=== PATIENT | male | born 1950 | race Caucasian/White ===

== ENCOUNTER 2023-07-09 16:54 | Inpatient (IN) | payer OTHER ==
[~2023-07-09] VITALS: Ht 165.1 cm; Wt 89.1 kg
[2023-07-09] MEDS ORDERED: B-121000 MC3 PO (17:48)
[2023-07-09] MEDS ORDERED: Aspir 8181 MG PO (17:48)
[2023-07-09] MEDS ORDERED: Lisinopril2.5 MG PO (17:48)
[2023-07-09] MEDS ORDERED: SERT25 PO (17:48)
[2023-07-09] MEDS ORDERED: VITAMIN D31000 UNI1 PO (17:49)
[2023-07-09] MEDS ORDERED: Colace100 MG PO (17:49)
[2023-07-09] MEDS ORDERED: Azithromycin 250 MG Tab PO ONE ×2 (18:30→19:55)
[2023-07-09] MEDS ORDERED: CefTRIAXone Sodium 1,000 MG in NS 50 ML IV ONE (18:30)
[2023-07-09 19:29] LABS: BASOPHILS ABSOLUTE AUTO 0.04 K/mm3 (0.00-0.23); BASOPHILS PERCENT AUTO 0 % (0-2); EOSINOPHILS ABSOLUTE AUTO 0.07 K/mm3 (0.00-0.68); EOSINOPHILS PERCENT AUTO 1 % (0-6); Hematocrit 39.8 % (37.0-53.0); Hemoglobin 12.6 g/dL (13.5-17.5); IMMATURE GRAN ABSOLUTE AUTO 0.26 K/mm3 (0.00-0.10); IMMATURE GRAN PERCENT AUTO 3 % (0-1); LYMPHOCYTES PERCENT AUTO 17 % (21-46); MONOCYTES ABSOLUTE AUTO 1.72 K/mm3 (0.16-1.47); MONOCYTES PERCENT AUTO 19 % (4-13); Mean Corpuscular HGB 28.6 pg (26.0-34.0); Mean Corpuscular HGB Conc 31.7 g/dL (31.5-36.5); Mean Corpuscular Volume 91 fL (80-100); Mean Platelet Volume 9.8 fL (9.1-12.4); NEUTROPHILS ABSOLUTE AUTO 5.59 K/mm3 (1.96-9.15); NEUTROPHILS PERCENT AUTO 60 % (41-73); Platelet Count 210 K/mm3 (150-400); RDW Coefficient Variation 15.5 % (11.7-14.2); RDW Standard Deviation 49.9 fL (35.1-46.3); White Blood Cell Count 9.28 K/mm3 (4.00-11.30)
[2023-07-09] MEDS ORDERED: Acetaminophen 325 MG TABLET PO PRN (20:25)
[2023-07-09] MEDS ORDERED: Ondansetron HCl 2 MG / ML 2ML Vial IV PRN (20:25)
[2023-07-09] MEDS ORDERED: FLU VACC QS2023-24(6MOS UP)/PF 60 MCG/0.5 ML SYRINGE IM SCH (20:25)
[2023-07-09] MEDS ORDERED: Albuterol 2.5 MG/3 ML VIAL INH PRN (20:30)
[2023-07-09] MEDS ORDERED: Ipratropium/Albuterol SulF 2.5-0.5MG/3 ML Amp INH SCH (20:30)
[2023-07-09] MEDS ORDERED: Ampicillin Sod/Sulbactam Sod 3 GM in NS 100 ML IV ONE (20:35)
[2023-07-09 20:39] LABS: International Normalized Ratio 1.12; Prothrombin Time Results 11.7 Sec (9.7-11.5)
[2023-07-09 20:43] LABS: Albumin, Blood 2.4 g/dL (3.4-5.0); Albumin/Globulin Ratio 0.6 (0.8-1.8); Bilirubin, Total 0.7 mg/dL (0.1-1.0); Bun/Creatinine Ratio 12.1 (12.0-20.0); Creatinine, Blood 0.83 mg/dL (0.60-1.20); Globulin, Blood 4.3 g/dL (2.2-4.0); Potassium, Blood 3.5 mmol/L (3.5-5.5); Total Protein, Blood 6.7 g/dL (6.4-8.2)
[2023-07-09 21:04] LABS: Influenza A, PCR NEGATIVE (NEGATIVE); Influenza B, PCR NEGATIVE (NEGATIVE); Resp Syncytial Virus, PCR NEGATIVE (NEGATIVE); SARS-Cov-2 (COVID-19) PCR, MMC NEGATIVE (NEGATIVE)
--- NOTE | 2023-07-09 23:35 | NUR ---
NEW ADMIT. PATIENT ADMITTED TO ROOM 344 FROM THE ER. PATIENT ARRIVED TO FLOOR VIA GURNEY AND ONE PERSON ASSIST. PATIENT ABLE TO SELF TRANSFER FROM THE GURNEY TO HOSPITAL BED. PATIENT UP WITH 2 PERSONAL BELONGINGS BAGS.
[2023-07-09 23:48] VITALS: BP 108/54
[2023-07-10] MEDS ORDERED: NS 250 ML IV PRN (01:50)
[2023-07-10] MEDS ORDERED: Ampicillin Sod/Sulbactam Sod 3 GM in NS 100 ML IV SCH (02:00)
[2023-07-10] MEDS ORDERED: NS 100 ML IV ONE ×2 (02:23→22:38)
[2023-07-10 03:03] VITALS: BP 112/72
[2023-07-10] MEDS ORDERED: HYDROmorphone HCl/Pf 1MG SYR IV PRN (04:15)
--- NOTE | 2023-07-10 04:39 | NUR ---
SHIFT SUMMARY. PATIENT IS ALERT AND ORIENTED. PATIENT IS ON 7.5 L'S VIA FACE MASK SATTING >93%. PATIENT ATTEMPTED TO USE HIS CPAP; PATIENT UNABLE TO TOLERATE-RT NOTIFIED. PATIENT IS PLESANT AND COOPERATIVE WITH CARE. PATIENT IS A 1P SBA TO THE BATHROOM. PATIENT CALLS APPROPRIATELY AND IS ABLE TO MAKE HIS NEEDS KNOWN.BED IS LOCKED IN THE LOWEST POSITION WITH CALL LIGHT IN REACH. NO NOTED S/S OF DISTRESS AT THIS TIME. CARE ONGOING.
[2023-07-10 04:44] LABS: Mean Corpuscular HGB 28.5 pg (26.0-34.0); Mean Corpuscular HGB Conc 31.4 g/dL (31.5-36.5); Mean Corpuscular Volume 91 fL (80-100); Mean Platelet Volume 10.3 fL (9.1-12.4); Platelet Count 173 K/mm3 (150-400); RDW Coefficient Variation 15.4 % (11.7-14.2); RDW Standard Deviation 50.5 fL (35.1-46.3); Red Blood Cell Count 3.86 M/mm3 (4.30-5.90); White Blood Cell Count 7.38 K/mm3 (4.00-11.30)
[2023-07-10 05:07] LABS: Bun/Creatinine Ratio 10.5 (12.0-20.0); Calcium, Blood 8.4 mg/dL (8.5-10.1); Creatinine, Blood 0.76 mg/dL (0.60-1.20); Potassium, Blood 3.5 mmol/L (3.5-5.5)
[2023-07-10] MEDS ORDERED: Insulin Human Lispro 100 Units/ML 3ML Syringe SC SCH (07:30)
[2023-07-10 07:53] VITALS: BP 113/67
[2023-07-10] MEDS ORDERED: Lisinopril 5 MG Tab PO SCH (09:00)
[2023-07-10] MEDS ORDERED: Azithromycin 500 MG in NS 250 ML IV SCH (09:00)
[2023-07-10] MEDS ORDERED: Enoxaparin 40 MG/0.4 ML SYR SC SCH (09:00)
[2023-07-10] MEDS ORDERED: Aspirin 81 MG TabEC PO SCH (09:00)
--- NOTE | 2023-07-10 10:44 | NUR ---
OXYGEN HIGH FLOW OXYGEN PLACED ON HUMIDIFIED CANNISTER. CARE ONGOING.
[2023-07-10 15:06] VITALS: BP 106/58
--- NOTE | 2023-07-10 16:51 | NUR ---
NOTE PT RESTING QUIETLY. 5L HUMNIDIFIED HIGH FLOW OXYGEN. PT SPO2 95% AT REST. WALKING 90%. HR STABLE. DENIED PAIN. MILD SOB WITH ACTIVITY. OCCASIONAL COUGH. EATING WELL. USING CALL LIGHT APPROPRIATELY. VSS. BED LOW AND LOCKED. CALL LIGHT WITH IN REACH. CARE ONGOING.
[2023-07-10 19:39] VITALS: BP 105/62
[2023-07-11 03:43] VITALS: BP 109/64
[2023-07-11 04:16] LABS: BASOPHILS ABSOLUTE AUTO 0.02 K/mm3 (0.00-0.23); BASOPHILS PERCENT AUTO 0 % (0-2); EOSINOPHILS ABSOLUTE AUTO 0.07 K/mm3 (0.00-0.68); EOSINOPHILS PERCENT AUTO 1 % (0-6); Hematocrit 35.5 % (37.0-53.0); Hemoglobin 10.9 g/dL (13.5-17.5); IMMATURE GRAN ABSOLUTE AUTO 0.34 K/mm3 (0.00-0.10); IMMATURE GRAN PERCENT AUTO 5 % (0-1); LYMPHOCYTES ABSOLUTE AUTO 1.23 K/mm3 (0.84-5.20); LYMPHOCYTES PERCENT AUTO 19 % (21-46); MONOCYTES ABSOLUTE AUTO 1.47 K/mm3 (0.16-1.47); MONOCYTES PERCENT AUTO 22 % (4-13); Mean Corpuscular HGB 28.2 pg (26.0-34.0); Mean Corpuscular HGB Conc 30.7 g/dL (31.5-36.5); Mean Corpuscular Volume 92 fL (80-100); Mean Platelet Volume 10.1 fL (9.1-12.4); NEUTROPHILS ABSOLUTE AUTO 3.42 K/mm3 (1.96-9.15); NEUTROPHILS PERCENT AUTO 52 % (41-73); Platelet Count 168 K/mm3 (150-400); RDW Coefficient Variation 15.8 % (11.7-14.2); RDW Standard Deviation 52.7 fL (35.1-46.3); Red Blood Cell Count 3.86 M/mm3 (4.30-5.90); White Blood Cell Count 6.55 K/mm3 (4.00-11.30)
[2023-07-11 04:32] LABS: Bun/Creatinine Ratio 9.2 (12.0-20.0); Calcium, Blood 8.4 mg/dL (8.5-10.1); Creatinine, Blood 0.76 mg/dL (0.60-1.20); Potassium, Blood 3.6 mmol/L (3.5-5.5)
--- NOTE | 2023-07-11 04:50 | NUR ---
SHIFT SUMMARY. PATIENT IS ALERT AND ORIENTED. PATIENT IS A 1P STAND BY ASSIST WITH CANE. PATIENT CALLS APPROPRIATELY AND IS ABLE TO MAKE HIS NEEDS KNOWN. NO ACUTE EVENTS NOTED T/O SHIFT. PATIENT ON 7 L'S OXYGEN VIA HIGH FLOW NASAL CANNULA SATTING >93%. PATIENTS BED IS LOCKED IN THE LOWEST POSITION WITH CALL LIGHT IN REACH. CARE IS ONGOING.
[2023-07-11 07:28] VITALS: BP 107/66
[2023-07-11] MEDS ORDERED: NS 100 ML IV ONE (12:14)
[2023-07-11] MEDS ORDERED: Polyethylene Glycol 3350 17 gm PO PRN (15:30)
[2023-07-11 16:54] VITALS: BP 127/69
--- NOTE | 2023-07-11 18:35 | NUR ---
SHIFT SUMMARY PT AXO, PLEASANT AND COOPERATIVE WITH CARE. VSS. PT UP WITH 1 ASSIST, GB AND CANE. PT COMPLAINED OF BACK PAIN, MEDICATED FOR PAIN PER EMAR WITH LITTLE EFFECT. IV ACCESS LOST JUST PRIOR TO THIS NOTE. CHARGE NURSE, VIOLETA ATTEMPTED X2 WITHOUT SUCCESS. PT TO BE NPO AT MIDNIGHT R/T BIOPSY PROCEDURE, MEDS OKAY. PT REPORTS CONSTIPATION, THIS NURSE ASKED DR ASKEW FOR BOWEL MEDS, NEW ORDERS PLACED. BED IN LOW POSITION, CALL LIGHT WITHIN REACH.
[2023-07-11 19:28] VITALS: BP 120/60
[2023-07-11] MEDS ORDERED: Docusate Sodium 100 MG Cap PO SCH (21:00)
[2023-07-12] VITALS (22 sets, daily range): BP systolic 93–162; BP diastolic 49–113
--- NOTE | 2023-07-12 04:35 | NUR ---
SHIFT SUMMARY. PATIENT IS ALERT AND ORIENTED. PATIENT USING URINAL AT BEDSIDE T/O NIGHT. PATIENT NPO AT MIDNIGHT FOR PROCEDURE ON 07/12/23. PATIENT C/O RIGHT HIP PAIN/DISCOMFORT R/T A FALL IN APRIL STATED PATIENT; MEDICATED FOR PAIN PER EMAR WITH GOOD RELIEF. NO ACUTE CHANGES OR EVENTS NOTED AT THIS TIME. BED IS LOCKED IN THE LOWEST POSITION WITH CALL LIGHT IN REACH. NO S/S OF DISTRESS NOTED AT THIS TIME. CARE IS ONGOING.
[2023-07-12] MEDS ORDERED: Ampicillin Sod/Sulbactam Sod 3 GM ONE (05:22)
--- NOTE | 2023-07-12 07:48 | NUR ---
THIS RN CALLED 'S ANSWERING SERVICE IN REGARDS TO PATIENT NOT ON THE LIST FOR PROCEDURE TODAY PER RT AND DAY SURGERY. DR. SERRANO MADE NOT THAT PATIENT WOULD HAVE THE PROCEDURE ON 07/12/23 AND ORDERED FOR PATIENT NPO TO PREPARE FOR PROCEDURE. SPOKE WITH WHO SAID HE WOULD CONTACT DAY SURGERY AND GET THE PATIENT ON THE LIST HE WAS NOT SURE IF THEY WOULD BE ON TODAY OR NOT. STATED HE WILL NOTIFY THE DAY SHIFT NURSE OF THE TIME FOR PATIENTS PROCEDURE.
[2023-07-12] MEDS ORDERED: Lidocaine 2% Jelly Uro-Jet ONE (12:07)
[2023-07-12] MEDS ORDERED: Lidocaine 2% 5 ML SDV ONE (12:07)
[2023-07-12] MEDS ORDERED: EpiNEPhrine 1 MG/1 ML 1ML Vial ONE (12:07)
[2023-07-12] MEDS ORDERED: Lactated Ringer's 1,000 ML IV SCH (12:25)
[2023-07-12] MEDS ORDERED: propofoL 40 ML IV ONE (12:30)
--- NOTE | 2023-07-12 13:00 | NUR ---
Into [facility] via [employer]. History, Chart, Medications and Allergies reviewed before start of procedure.Lungs diminished and tight r>l. Sats >90% on 4 liters nasal canula. Patient confirms NPO status and agrees with scheduled surgery.
--- NOTE | 2023-07-12 13:08 | NUR ---
LEFT AC PIV @20 SITE CLEAR-FLUSHES WELL.
--- NOTE | 2023-07-12 13:20 | NUR ---
07/12/23 1320 Annalise Montiel HISTORY, CHART, MEDICATIONS AND ALLERGIES REVIEWED BEFORE START OF PROCEDURE. PATIENT CONFIRMS NPO STATUS AND AGREES WITH SCHEDULED PROCEDURE. 3-LEAD EKG REVIEWED WITH PHYSICIAN PRIOR TO START OF PROCEDURE. MONITOR INTACT WITH CONTINUOUS PULSE OXIMETRY,CAPNOGRAPHY, 3-LEAD EKG, INTERMITTENT BP. SUPPLEMENTAL O2 TO BE TITRATED THROUGHOUT PROCEDURE TO MAINTAIN O2 SATURATION ABOVE 90%. PATIENT DETERMINED TO BE ASA APPROPRIATE FOR PROPOFOL SEDATION PRIOR TO START OF PROCEDURE BY .
--- NOTE | 2023-07-12 16:47 | NUR ---
PALLATIVE CARE- MET WITH GERARDO AND DISCUSSED SYMPTOMS. HE REPORTED THAT UPON ARRIVAL TO THE HOSPITAL HE WAS VERY SHORT OF BREATH. HE WAS AT THE PEDIOTRISTS OFFICE AND THEY RECOMENDED THAT HE COME TO THE HOSPITAL. HE IS FEELING SOME ALEVIATION OF SOB WITH THE USE OF O2 VIA NC. HE DENIES ANY PAIN AT THIS TIME. HE HAD A BRONCHOSCOPE TODAY WITH A BIOPSY, RESULTS ARE PENDING. REQUEST A VISIT FROM SPIRITUAL CARE.
--- NOTE | 2023-07-12 17:53 | NUR ---
SHIFT SUMMARY PT A&OX4, VSS, 3L O2 NC, ON CONT PULSE OX, AMB IND/SBA, TOLERATING PO, VOIDING, AND PAIN MANAGED PER EMAR. PT HAD BRONCHOSCOPY PROCEDURE W/ BIOPSY THIS SHIFT. PALLIATIVE CARE SPOKE W/ PT AND A SPIRITUAL CARE CONSULT WAS ORDERED. CALL LIGHT WITHIN REACH AND PT ABLE TO MAKE NEEDS KNOWN.
[2023-07-12] MEDS ORDERED: FentaNYL Citrate 50 MCG/ML 2 ML Injection IV PRN (21:05)
[2023-07-12] MEDS ORDERED: Benzocaine Oral Spray 0.5ML UD MT PRN (22:10)
[2023-07-12] MEDS ORDERED: NS 100 ML IV ONE (22:51)
[2023-07-13] MEDS ORDERED: NS 100 ML IV ONE (03:53)
--- NOTE | 2023-07-13 04:57 | NUR ---
SHIFT SUMMARY PT IS A&OX4 AND ANSWERS QUESTIONS APPROPRIATELY. PT VERBALIZES PAIN AT BEGINNING OF SHIFT, PHYSICIAN CALLED AND FENTANYL 25-50MCG Q4 ORDERED AND ADMINISTERED. HURRICAINE SPRAY ORDERED FOR SORE THROAT RELATED TO BRONCHOSCOPY DONE ON 07/12. PT GIVEN IV UNASYN PER EMAR. PT SLEPT MOST OF SHIFT WITH EYES CLOSED AND RESPIRATIONS EVEN AND UNLABORED. NO COMPLAINTS OF SOB OR CP. NO ACUTE EVENTS AT THIS TIME. PT LEFT IN A POSITION OF SAFETY WITH APPROPRIATE FALL PRECAUTIONS IN PLACE AND CALL LIGHT IN REACH.
[2023-07-13 05:01] VITALS: BP 114/67
[2023-07-13 07:09] VITALS: BP 127/69
[2023-07-13 14:56] VITALS: BP 111/60
--- NOTE | 2023-07-13 15:03 | NUR ---
Spiritual care visit conducted. Patient is lying in bed and alert. He immediately shares his Protestant beliefs with me and tells me the strength and courage he gathers from his marianela. He tells me about his medical issues and that he is ready to because he feels as if he is at peace with God and man. We discuss is career in [employer], the deaths of so many friends and family members and about the family members that are alive have stolen from him. He states that God is everything to him and sharing the love that he receives from God and giving it to others. I provide therapeutic listening, grief support, scripture recitation and prayer. Patient responded well and showed signs of greater peace. I will continue to remain available to patient and family.
--- NOTE | 2023-07-13 18:53 | NUR ---
SHIFT SUMMARY: PT A/O X 4, IND IN ROOM PLEASANT AND COOPERATIVE. PT CONTINUES TO BE ON 3 LPM VIA NC. PT HAS DYSPNEA WITH EXERTION, RECOVERS QUICKLY. DR. CABRERA CONSULT CALLED, BUT HAVE NOT SEEN HIM YET. PT DENIES ANY CONCERNS AT THIS TIME. EATING WELL AND DRINKING FLUIDS WELL.
[2023-07-13 19:12] VITALS: BP 107/55
[2023-07-13] MEDS ORDERED: OxyCODONE 5 mg/Acetamin 325 mg TABLET PO PRN (21:10)
[2023-07-14 04:12] VITALS: BP 100/67
--- NOTE | 2023-07-14 04:29 | NUR ---
HARD COPY OF SHIFT SUMMARY IN PT CHART.
[2023-07-14 07:18] VITALS: BP 110/71
[2023-07-14] MEDS ORDERED: Azithromycin 250 MG Tab PO SCH (09:00)
[2023-07-14 10:55] VITALS: BP 116/66
[2023-07-14] MEDS ORDERED: NS 100 ML IV ONE ×2 (13:08→18:36)
[2023-07-14 17:06] VITALS: BP 119/59
--- NOTE | 2023-07-14 18:36 | NUR ---
SHIFT SUMMARY- PT ALERT AND ORIENTED X3. HE HAS HAD NO ACUTE CHANGE T/O THE SHIFT. PHYSICAL THERAPY WORKED WITH THE PT AND STRONGLY ENCOURAGED THE PT TO CALL FOR ASSISTANCE. PT IS A 1P SBA D/T DESATS WITH AMBULATION. PT HAS A HOME O2 EVAL ORDERED FOR PRIOR TO DISCHARGE.PT THOUGHT HE WAS GOING TO DC TODAY. PT WAS SEEN BY DR CABRERA EARLIER THIS SHIFT WHO EXPLAINED HIS CANCER DIAGNOSIS TO HIM AND THE TREATMENT PLAN. PT TOLD DR THAT HE HAD A PET SCAN ON May. DR WILL SEEK THE RESULTS. PT IS TO FOLLOW UP WITH DR CABRERA OUT PT NEXT WEEK. PT IN THE RECLINER, NO S&S OF DISTRESS AT THIS TIME WILL PASS ON IN REPORT TO NIGHT RN.
[2023-07-14 19:22] VITALS: BP 127/69
[2023-07-14] MEDS ORDERED: Amoxicillin/Clavulanate K 875 MG Tab PO SCH (21:00)
[2023-07-15 02:56] VITALS: BP 105/60
--- NOTE | 2023-07-15 03:58 | NUR ---
0700: ASSUMED CARE OF PT, BEDSIDE REPORT RECEIVED FROM DAY SHIFT RN. PT IS SITTING UP IN THE CHAIR, BREATHING IS EVEN AND UNLABORED ON 3LNC. PT HAS BEEN IND TO SBA IN THE ROOM. PLAN FOR POSSIBLE D/C TOMORROW PER PT AND DAY RN. PT IS A/O, ABLE TO MAKE NEEDS KNOWN. CONTINUOUS PULSE OXIMETER IN PLACE. MEDICATED X1 FOR BACK PAIN. NO ACUTE EVENTS DURING THE SHIFT. SAFETY MEASURES TAKEN, ALL NEEDS ADDRESSED.
[2023-07-15 07:26] VITALS: BP 107/62
[2023-07-15] MEDS ORDERED: ALBU2.5V5 INH (11:18)
[2023-07-15] MEDS ORDERED: AMOCLA875 PO (11:18)
[2023-07-15] MEDS ORDERED: VISBIOME 112.51 EACH PO (11:19)
[2023-07-15] MEDS ORDERED: IPRAT-ALBUT 0.5-3 ML INH (11:19)
[2023-07-15] MEDS ORDERED: ACET325 PO (11:20)
--- NOTE | 2023-07-15 13:35 | NUR ---
DISCHARGE NOTE PT DISCHARGED HOME, PICKED UP TO BE DRIVEN BACK TO [place]. DISCHARGE PAPERWORK AND EDUCATION PROVIDED. OXYGEN DELIVERED AND SENT WITH THE PT. MEDICATIONS FAXED TO THE PHARMACY OF HIS CHOICE.
== END 2023-07-15 13:32 | disposition home health service (06) | DRG 166 ==
LOC: ER 16:54 → MEDS 20:24
PROVIDERS: Family Medicine; Internal Medicine Critical Care Medicine; Nurse Practitioner Acute Care; Student in an Organized Health Care Education/Training Program; ADMIT Internal Medicine
PROC: 0BBJ8ZX Excision of Left Lower Lung Lobe, Via Natural or Artificial Opening Endoscopic, Diagnostic (ICD-10-PCS; principal; 2023-07-12 12:30)
DX: J18.9 Pneumonia, unspecified organism (principal); J96.01 Acute respiratory failure with hypoxia; J44.0 Chronic obstructive pulmonary disease with (acute) lower respiratory infection; C34.32 Malignant neoplasm of lower lobe, left bronchus or lung; E11.9 Type 2 diabetes mellitus without complications; D64.9 Anemia, unspecified; E78.5 Hyperlipidemia, unspecified; N40.0 Benign prostatic hyperplasia without lower urinary tract symptoms; I10 Essential (primary) hypertension; Z99.81 Dependence on supplemental oxygen; Z98.890 Other specified postprocedural states; Z87.891 Personal history of nicotine dependence; Z79.82 Long term (current) use of aspirin; Z79.899 Other long term (current) drug therapy; Z79.811 Long term (current) use of aromatase inhibitors; M54.50 Low back pain, unspecified; Z11.52 Encounter for screening for COVID-19
CPT/HCPCS: 0241U; 36415; 71045; 80048; 80053; 82947; 84145; 85025; 85027; 85610; 88108; 88305; 88341; 88342; 93005; 93010; 93971; 94640; 94660; 94664; 94761; 94762; 96365; 96367; 97110; 97162; 97530; 99285-25; A9270; J0171; J0295; J0456; J0696; J1650; J2704; J3010; J7050; J7120

== ENCOUNTER 2023-11-29 18:55 | Observation (INO) | payer OTHER ==
[~2023-11-29] VITALS: Ht 170.2 cm; Wt 82.4 kg
[~2023-11-29 18:55] MED LIST: ACET325 PO; ALBU2.5V5 INH; AMOCLA875 PO; Aspir 8181 MG PO; B-121000 MC3 PO; Colace100 MG PO; IPRAT-ALBUT 0.5-3 ML INH; Lisinopril2.5 MG PO; SERT25 PO; VISBIOME 112.51 EACH PO; VITAMIN D31000 UNI1 PO
[2023-11-29] MEDS ORDERED: NS 1,000 ML IV SCH (19:00)
[2023-11-29 20:04] LABS: BASOPHILS ABSOLUTE AUTO 0.03 K/mm3 (0.00-0.23); BASOPHILS PERCENT AUTO 0 % (0-2); EOSINOPHILS ABSOLUTE AUTO 0.13 K/mm3 (0.00-0.68); EOSINOPHILS PERCENT AUTO 1 % (0-6); Hematocrit 30.4 % (37.0-53.0); Hemoglobin 9.5 g/dL (13.5-17.5); IMMATURE GRAN ABSOLUTE AUTO 0.06 K/mm3 (0.00-0.10); IMMATURE GRAN PERCENT AUTO 1 % (0-1); LYMPHOCYTES ABSOLUTE AUTO 0.68 K/mm3 (0.84-5.20); LYMPHOCYTES PERCENT AUTO 5 % (21-46); MONOCYTES ABSOLUTE AUTO 0.98 K/mm3 (0.16-1.47); MONOCYTES PERCENT AUTO 8 % (4-13); Mean Corpuscular HGB 27.1 pg (26.0-34.0); Mean Corpuscular HGB Conc 31.3 g/dL (31.5-36.5); Mean Corpuscular Volume 87 fL (80-100); Mean Platelet Volume 9.4 fL (9.1-12.4); NEUTROPHILS ABSOLUTE AUTO 11.09 K/mm3 (1.96-9.15); NEUTROPHILS PERCENT AUTO 86 % (41-73); Platelet Count 343 K/mm3 (150-400); RDW Coefficient Variation 16.4 % (11.7-14.2); RDW Standard Deviation 52.2 fL (35.1-46.3); White Blood Cell Count 12.97 K/mm3 (4.00-11.30)
[2023-11-29 20:23] LABS: Albumin, Blood 2.5 g/dL (3.4-5.0); Albumin/Globulin Ratio 0.6 (0.8-1.8); Bilirubin, Total 0.3 mg/dL (0.1-1.0); Bun/Creatinine Ratio 17.4 (12.0-20.0); Calcium, Blood 9.3 mg/dL (8.5-10.1); Creatinine, Blood 0.92 mg/dL (0.60-1.20); Globulin, Blood 4.5 g/dL (2.2-4.0); Potassium, Blood 3.5 mmol/L (3.5-5.5)
[2023-11-29 21:04] LABS: Source, Urine Clean Catch
[2023-11-29 21:10] LABS: Bilirubin, Urine Neg (Neg); Blood, Urine Neg (Neg); Color, Urine Yellow (P-Yellow); Glucose Qualitative, Urine Neg (Neg); Ketones, Urine 1+ (Neg); Leukocyte Esterase, Urine Neg (Neg); Nitrite, Urine Neg (Neg); Protein, Urine 1+ (Neg); Urobilinogen, Urine 2+ (Normal)
[2023-11-29 21:17] LABS: Appearance, Urine Hazy (Clear)
[2023-11-29 21:18] LABS: Amorphous Light (0-Heavy); Bacteria Mod /hpf; Calcium Oxalate Crystals Mod /hpf; Mucus Mod (0-Heavy); Red Blood Cells, Urine 0-2 /hpf (0-2); Squamous Epithelial Cells Few /hpf (Few); White Blood Cells, Urine 0-2 /hpf (0-5)
[2023-11-29 22:18] LABS: Influenza A, PCR NEGATIVE (NEGATIVE); Influenza B, PCR NEGATIVE (NEGATIVE); Resp Syncytial Virus, PCR NEGATIVE (NEGATIVE); SARS-Cov-2 (COVID-19) PCR, MMC NEGATIVE (NEGATIVE)
[2023-12-01 12:31] VITALS: BP 111/59
[2023-12-01 15:29] VITALS: BP 121/75
--- NOTE | 2023-12-01 18:51 | NUR ---
VOICEMAIL FOR DR. ELY REQUESTING PRN PAIN MEDICAITON FOR CHRONIC PAIN. ONCOMING RN NOTIFIED.
[2023-12-01] MEDS ORDERED: TraMADol HCl 50 MG Tab PO PRN (19:45)
[2023-12-01] MEDS ORDERED: Acetaminophen 325 MG TABLET PO PRN (19:45)
[2023-12-01 20:32] VITALS: BP 106/59
--- NOTE | 2023-12-01 20:44 | NUR ---
DAY SHIFT SUMMARY: A&Ox3-4. PLEASANT AND COOPERATIVE WITH CARE. CALLS APPROPRIATELY AND IS ABLE TO ADVOCATE NEEDS EFFECTIVELY. C/O CHRONIC PAIN RELATED TO Hx BACK INJURY. CURRENTLY UNDERGOING LUNG CANCER TREATMENT. [facility] AFTER BEING FOUND TO BE HYPOXIC. HAS A CAREGIVER, BUT HAS BEEN UNABLE TO RETURN HOME CAREGIVER HAS HAD A FAMILY EMERGENCY. C/O PAIN AND OBTAINED ORDER FROM DR. MYERS FOR PRN APAP AND TRAMADOL. MAINTAININ SPO2 >92% ON RA. UNABLE TO RECONCILE MEDICATION LIST PATIENT IS UNAWARE OF WHAT HIS MEDICATIONS ARE AND CAREGIVER HAS BEEN UNAVAILABLE. SOCIAL ADMIT, AT THIS TIME. AMBULATES INDEPENDENTLY WITHIN ROOM. CONTINENT OF BOWEL AND BLADDER. MEDS WHOLE WITH FLUIDS. NO TELE, NO O2. BED IN LOWEST POSITION. CALL LIGHT WITHIN REACH. ALL NEEDS MET. REPORT TO ONCOMING RN.
[2023-12-02] MEDS ORDERED: FentaNYL Citrate 50 MCG/ML 2 ML Injection IV PRN (01:15)
--- NOTE | 2023-12-02 01:44 | NUR ---
NEW ORDER DURING THIS SHIFT FROM ONCALL HOSPITALIST: 25-50MCG FETANYL IV Q4HRS FOR SEVERE PAIN. PT.WAS MEDICATED WITH 25MCG@0145, C/O 01/31WORST LOW BACK PAIN.
[2023-12-02 03:16] VITALS: BP 109/65
--- NOTE | 2023-12-02 05:18 | NUR ---
SHIFT SUMMARY PT. IS A&O X3-4, LAYING COMFORTABLY IN HOSPITAL BED, COOP WITH CARE, POOR HISTORIAN. MED RECONCILIATION COMPLETED, PT. UNABLE TO REMEMBER OR RECALL ANY OF THE MEDICATIONS ON THE [facility] LIST AT THIS TIME. PT. C/O CHRONIC PAIN, MEDICATED ORDERED WITH TYLENOL AND TRAMADOL ORDERED DURING HS. AROUND 0100, PT.C/O 9/10 BACK PAIN, "MOSTLY AT LOWER SPINE" PER PT. REPORT- NEW ORDER FROM ONCALL HOSPITALIST FOR FETANYL 25-50MCG IV Q4HRS. MEDICATED X1 DURING THIS SHIFT. PT. IS ON RA, O2 SATS LOW 90'S,NO RESPIRATORY DISTRESS NOTED/REPORTED DURING THIS SHIFT. NO COUGH NOTED, LS. DMINISHED. NO ACUTE EVENTS/ DISTRESS NOTED/REPORTED DURING THIS SHIFT. BED AT THE LOWEST POSITION, CALL LIGHT IN REACH. WILL HANDOFF TO THE INCOMING SHIFT NURSE.
[2023-12-02 07:15] LABS: BASOPHILS ABSOLUTE AUTO 0.02 K/mm3 (0.00-0.23); BASOPHILS PERCENT AUTO 0 % (0-2); EOSINOPHILS ABSOLUTE AUTO 0.17 K/mm3 (0.00-0.68); EOSINOPHILS PERCENT AUTO 1 % (0-6); Hemoglobin 9.9 g/dL (13.5-17.5); IMMATURE GRAN ABSOLUTE AUTO 0.04 K/mm3 (0.00-0.10); IMMATURE GRAN PERCENT AUTO 0 % (0-1); LYMPHOCYTES ABSOLUTE AUTO 0.36 K/mm3 (0.84-5.20); LYMPHOCYTES PERCENT AUTO 3 % (21-46); MONOCYTES ABSOLUTE AUTO 0.71 K/mm3 (0.16-1.47); MONOCYTES PERCENT AUTO 6 % (4-13); Mean Corpuscular HGB 26.8 pg (26.0-34.0); Mean Corpuscular HGB Conc 30.9 g/dL (31.5-36.5); Mean Corpuscular Volume 87 fL (80-100); Mean Platelet Volume 9.9 fL (9.1-12.4); NEUTROPHILS ABSOLUTE AUTO 10.47 K/mm3 (1.96-9.15); NEUTROPHILS PERCENT AUTO 89 % (41-73); Platelet Count 320 K/mm3 (150-400); RDW Standard Deviation 50.4 fL (35.1-46.3); White Blood Cell Count 11.77 K/mm3 (4.00-11.30)
[2023-12-02 07:34] LABS: BASOPHILS PERCENT MAN 0 % (0-2); EOSINOPHILS ABSOLUTE MAN 0.11 K/mm3 (0.00-0.68); EOSINOPHILS PERCENT MAN 1 % (0-6); LYMPHOCYTES ABSOLUTE MAN 0.11 K/mm3 (0.84-5.20); LYMPHOCYTES PERCENT MAN 1 % (21-46); MONOCYTES ABSOLUTE MAN 0.94 K/mm3 (0.16-1.47); MONOCYTES PERCENT MAN 8 % (4-13); NEUTROPHILS ABSOLUTE MAN 10.59 K/mm3 (1.96-9.15); SEG NEUTROPHILS PERCENT MAN 90 % (41-73); TOTAL CELLS COUNTED 100
[2023-12-02 07:37] VITALS: BP 101/59
[2023-12-02 07:41] LABS: Bun/Creatinine Ratio 14.1 (12.0-20.0); Creatinine, Blood 0.85 mg/dL (0.60-1.20); Potassium, Blood 3.6 mmol/L (3.5-5.5)
[2023-12-02] MEDS ORDERED: Enoxaparin 40 MG/0.4 ML SYR SC SCH (09:00)
--- NOTE | 2023-12-02 15:16 | NUR ---
SHIFT SUMMARY PT RESTING QUIETLY AT START OF SHIFT. WOKE EASILY FOR CARE. PT HAS BEEN VERY PLEASANT AND CO-OP. C/O BACK PAIN. MEDICATED PER EMAR. DR ELY NOTIFIED FOR HEATING PAD, WHICH PT REPORTED HELPFUL. POOR APPITITE FOR LUNCH. CONTINENT OF BOWEL AND BLADDER. TAKES MEDS WHOLE IN WATER. DENIES FURTHER NEEDS AT THIS TIME. RURAL SERVICE ENGINEER ASSISTING WITH D/C PLANNING. CALL LT IN REACH
[2023-12-02 15:22] VITALS: BP 108/69
[2023-12-02 19:59] VITALS: BP 114/57
[2023-12-03] MEDS ORDERED: TAMS.4ER PO (00:32)
[2023-12-03] MEDS ORDERED: GLUCERNA SHAKE PO (00:33)
[2023-12-03] MEDS ORDERED: METF500 PO (00:33)
[2023-12-03] MEDS ORDERED: Norco 10-325 T1 EACH PO (00:34)
[2023-12-03] MEDS ORDERED: CENTRUM SILVER1 EAC2 PO (00:34)
[2023-12-03] MEDS ORDERED: ZOCOR20 MG PO (00:35)
[2023-12-03] MEDS ORDERED: Ketoconazole120 ML TOP (00:35)
[2023-12-03] MEDS ORDERED: MIRALAX17 GM PO (00:36)
[2023-12-03] MEDS ORDERED: SERT25 PO (00:36)
--- NOTE | 2023-12-03 03:52 | NUR ---
SHIFT SUMMARY PT. IS A&O X4, ABLE TO MAKE HIS NEEDS KNOWN, PLEASANT. C/O 8-01/31 BACKPAIN, MEDICATED ORDERED T/O THIS SHIFT (SEE EMAR.) PT.REPORTS FETANYL IV PRN NOT EFFECTIVE " IT SHOULD." PT.REPORTS TAKES "DOWN 2 POINTS ON NUMBER SCALE". LS DIMINISHED LL'S, NO COUGH NOTED OR REPORTED DURING THIS SHIFT. NO ACUTE DISTRESS OR EVENTS DURING THIS SHIFT. CALL LIGHT IN REACH.
[2023-12-03 04:13] VITALS: BP 92/53
[2023-12-03 06:12] LABS: BASOPHILS ABSOLUTE AUTO 0.03 K/mm3 (0.00-0.23); BASOPHILS PERCENT AUTO 0 % (0-2); EOSINOPHILS ABSOLUTE AUTO 0.18 K/mm3 (0.00-0.68); EOSINOPHILS PERCENT AUTO 2 % (0-6); Hematocrit 29.6 % (37.0-53.0); Hemoglobin 9.2 g/dL (13.5-17.5); IMMATURE GRAN ABSOLUTE AUTO 0.06 K/mm3 (0.00-0.10); IMMATURE GRAN PERCENT AUTO 1 % (0-1); LYMPHOCYTES ABSOLUTE AUTO 0.42 K/mm3 (0.84-5.20); LYMPHOCYTES PERCENT AUTO 4 % (21-46); MONOCYTES ABSOLUTE AUTO 0.75 K/mm3 (0.16-1.47); MONOCYTES PERCENT AUTO 7 % (4-13); Mean Corpuscular HGB 26.9 pg (26.0-34.0); Mean Corpuscular HGB Conc 31.1 g/dL (31.5-36.5); Mean Corpuscular Volume 87 fL (80-100); Mean Platelet Volume 9.5 fL (9.1-12.4); NEUTROPHILS ABSOLUTE AUTO 9.74 K/mm3 (1.96-9.15); NEUTROPHILS PERCENT AUTO 87 % (41-73); Platelet Count 298 K/mm3 (150-400); RDW Coefficient Variation 16.1 % (11.7-14.2); RDW Standard Deviation 51.2 fL (35.1-46.3); Red Blood Cell Count 3.42 M/mm3 (4.30-5.90); White Blood Cell Count 11.18 K/mm3 (4.00-11.30)
[2023-12-03 06:58] LABS: BASOPHILS PERCENT MAN 0 % (0-2); EOSINOPHILS PERCENT MAN 0 % (0-6); LYMPHOCYTES ABSOLUTE MAN 0.67 K/mm3 (0.84-5.20); LYMPHOCYTES PERCENT MAN 6 % (21-46); MONOCYTES ABSOLUTE MAN 0.55 K/mm3 (0.16-1.47); MONOCYTES PERCENT MAN 5 % (4-13); NEUTROPHILS ABSOLUTE MAN 9.95 K/mm3 (1.96-9.15); SEG NEUTROPHILS PERCENT MAN 89 % (41-73); TOTAL CELLS COUNTED 100
[2023-12-03 07:07] VITALS: BP 107/72
[2023-12-03] MEDS ORDERED: Magnesium Hydroxide Conc 10 ML UDC PO PRN (09:35)
[2023-12-03] MEDS ORDERED: Bisacodyl 10 MG Supp PR PRN (09:35)
[2023-12-03] MEDS ORDERED: Sennosides 8.6 MG Tab PO PRN (09:35)
[2023-12-03] MEDS ORDERED: OxyCODONE 5 mg/Acetamin 325 mg TABLET PO PRN (11:55)
[2023-12-03 15:11] VITALS: BP 112/71
--- NOTE | 2023-12-03 16:11 | NUR ---
SHIFT SUMMARY PT RESTING QUEIETLY AT START OF SHIFT. WOKE EASILY FOR CARE. VERY PLEASANT AND CO-OP. UP INDEPENDENTLY IN RM AND TO [facility]. C/O CONSTIPATION; DR VAZQUEZ NOTIFIED FOR BOWEL CARE. OBTAINED AND GIVEN. PT MEDICATED FOR C/O BACK PAIN. PAIN MEDICATION CHANGED TODAY; PT REPORTING PEROCET MORE AFFECTED FOR RELIEF. UP TO [facility] FOR SHOWER AFTER BREAKFAST. PT TO D/C TO HOME TOMORROW. FRIEND / NEIGHBOR MARGARITO NOTIFIED BY [employer]. MARGARITO CARING FOR PT'S CAT. PT TO SELF PAY TAXI HOME. RESTING QUIETLY AT THIS TIME. CALL LT IN REACH.
[2023-12-03 19:51] VITALS: BP 111/66
--- NOTE | 2023-12-04 03:47 | NUR ---
SHIFT SUMMARY PT. IS PLEASANT, A&O X3-4, AND ABLE TO MAKE HIS NEEDS KNOWN. PT. HAS MOMENTS OF CONFUSION, AND HARD TIME RECALLING TIMES, OR PLACES, SUCH NAME OF TOWN HE LIVES IN. -01/31 BACK PAIN, MEDICATED ORDERED (SEE EMAR.) PT. REPORTS BETTER PAIN CONTROL WITH OXY/APAP. NO ACUTE EVENTS DURING THIS SHIFT. PT IS DISCHARGING THIS MORNING, AND PAYING TAXIRIDE BACK HOME TO [place]. PT.S NEIGHBOR NURA, WHO IS TAKING CARE OF PT.'S CAT, IS AWARE THAT PT. IS RETURNING HOME TODAY,PER PREVIOUS SHIFT NURSE REPORT.
[2023-12-04 06:00] LABS: BASOPHILS ABSOLUTE AUTO 0.02 K/mm3 (0.00-0.23); BASOPHILS PERCENT AUTO 0 % (0-2); EOSINOPHILS ABSOLUTE AUTO 0.16 K/mm3 (0.00-0.68); EOSINOPHILS PERCENT AUTO 1 % (0-6); Hematocrit 29.5 % (37.0-53.0); Hemoglobin 9.2 g/dL (13.5-17.5); IMMATURE GRAN ABSOLUTE AUTO 0.07 K/mm3 (0.00-0.10); IMMATURE GRAN PERCENT AUTO 1 % (0-1); LYMPHOCYTES ABSOLUTE AUTO 0.55 K/mm3 (0.84-5.20); LYMPHOCYTES PERCENT AUTO 5 % (21-46); MONOCYTES ABSOLUTE AUTO 0.85 K/mm3 (0.16-1.47); MONOCYTES PERCENT AUTO 7 % (4-13); Mean Corpuscular HGB 27.1 pg (26.0-34.0); Mean Corpuscular HGB Conc 31.2 g/dL (31.5-36.5); Mean Corpuscular Volume 87 fL (80-100); Mean Platelet Volume 9.7 fL (9.1-12.4); NEUTROPHILS ABSOLUTE AUTO 9.92 K/mm3 (1.96-9.15); NEUTROPHILS PERCENT AUTO 86 % (41-73); Platelet Count 305 K/mm3 (150-400); RDW Coefficient Variation 16.1 % (11.7-14.2); RDW Standard Deviation 51.5 fL (35.1-46.3); White Blood Cell Count 11.57 K/mm3 (4.00-11.30)
[2023-12-04 06:10] LABS: Bun/Creatinine Ratio 16.5 (12.0-20.0); Calcium, Blood 8.8 mg/dL (8.5-10.1); Creatinine, Blood 0.85 mg/dL (0.60-1.20); Potassium, Blood 3.6 mmol/L (3.5-5.5)
[2023-12-04 07:22] VITALS: BP 111/67
--- NOTE | 2023-12-04 11:50 | NUR ---
X RAY L ELBOW COMPLETE
[2023-12-04] MEDS ORDERED: IBUP600 PO (13:04)
--- NOTE | 2023-12-04 14:59 | NUR ---
FALL. PATIENT SUSTAINED FALL WHILE IN BATHROOM. STATED HE WAS GETTING UP, BENT TOO FAR AND LOST IT. THIS RN HEARD A THUD, WAS TAKING REPORT ON PHONE AND ASKED INVOICE CONTROL CLERK TO IMMEDIATELY CHECK. PATIENT WAS FOUND ON BILAT KNEES AND LEFT ELBOW HOLDING HIM UP. VITALS TAKEN AND WAS ASSISTED ONE PERSON UP TO TOILET. RN ASSESSED, FOUND BILAT RED KNEES AND RED LEFT ELBOW. C/OPAIN IN LEFT ELBOW. DR MATT NOTIFIED AND ORDERED X RAY TO ELBOW. PATIENT INSISTENT ON CONTINUING WITH DISCHARGE. DR MATT OKAYED PENDING NEGATIVE X RAY. APAP GIVEN FOR PAIN. ALL OTHER FAT PRESSROOM WORKER NEG.
--- NOTE | 2023-12-04 15:03 | NUR ---
DISCHARGE SUMMARY ELBOW XRAY READ AND NEGATIVE. PATIENT REPORTS GOOD RELIEF WITH APAP DOSE. DISCHARGE PACKET GIVEN AND REVIEWED, VERBALIZED UNDERSTANDING. [facility] CALLED FOR PATIENT AND WILL BE HERE SHORTLY. IV REMOVED, NO COMPLICATIONS. PATIENT VERBALIZING DESIRE TO LEAVE DESPITE FALL. DENYING ANY OTHER SOURCES OF NEW PAIN. UNIT RECEPTIONIST CONTINUES TO BE NEG FOR NEW INJURY.
== END 2023-12-04 13:45 | disposition home or self-care (01) ==
LOC: ER 18:55 → MEDS 18:56
PROVIDERS: Emergency Medicine; Family Medicine; Student in an Organized Health Care Education/Training Program; ADMIT Internal Medicine
DX: R41.82 Altered mental status, unspecified (principal); E11.9 Type 2 diabetes mellitus without complications; I10 Essential (primary) hypertension; E78.5 Hyperlipidemia, unspecified; J44.9 Chronic obstructive pulmonary disease, unspecified; Z87.891 Personal history of nicotine dependence; Z79.82 Long term (current) use of aspirin; Z79.899 Other long term (current) drug therapy
CPT/HCPCS: 0241U; 36415; 70450; 71045; 73080; 80048; 80053; 81001; 85025; 87086; 93005; 93010; 96360; 96361; 96372; 96374; 96376; 97116; 97161; 99285-25; A9270; G0378; J1650; J3010; J7030